=== PATIENT | female | born 1960 | race Caucasian/White ===

== ENCOUNTER → 2016-12-06 | Outpatient (CLI) | payer BC ==
[~2016-12-06] MED LIST: AMT10 PO; ATOR-22 PO; CALC1CHW PO; DIPH1TAB87 PO; GUAI400T44 PO; LEVO88TA3 PO; OLME1TAB11 PO; RANI300T2 PO
--- NOTE | 2016-12-06 14:06 | MAMMOGRAPHY REPORT ---
BILATERAL DIGITAL SCREENING MAMMOGRAM TOMOSYNTHESIS WITH CAD: 12/06/2016 CLINICAL HISTORY: Routine screening. Patient has no complaints. TECHNIQUE: Breast tomosynthesis in addition to standard 2D mammography was performed. Current study was also evaluated with a Computer Aided Detection (CAD) system. COMPARISON: Comparison is made to exams dated: 10/20/2015 mammogram, 07/19/2014 mammogram, 07/16/2013 miko mogram, 07/11/2012 mammogram, 07/10/2011 mammogram, and 06/15/2010 mammogram - [facility]. BREAST COMPOSITION: The tissue of both breasts is heterogeneously dense, which may obscure small ma sses. FINDINGS: No suspicious masses, calcifications, or areas of architectural distortion are noted in e ither breast. There has been no significant interval change compared to prior exams. IMPRESSION: ACR BI-RADS CATEGORY 1: NEGATIVE There is no mammographic evidence of malignancy. A 1 year screening mammogram is recommended. The p atient will receive written notification of the results. Approximately 10% of breast cancers are not detected with mammography. A negative mammographic repor t should not delay biopsy if a clinically suggestive mass is present. Stephenie Galdamez M.D. ah/:12/06/2016 09:01:23 Lightning Rod Erector: Elmer MARCELINO(R)(M), [facility] letter sent: Normal 1/2 BI-RADS Code: ACR BI-RADS Category 1: Negative
== END | disposition home or self-care (01) ==
LOC: C.MAMM 08:31
PROVIDERS: ATTEND Obstetrics & Gynecology
DX: Z12.31 Encounter for screening mammogram for malignant neoplasm of breast (principal)

== ENCOUNTER 2017-06-10 10:45 | Emergency (ER) | payer BC ==
[~2017-06-10] VITALS: Ht 160 cm; Wt 69.1 kg
[2017-06-10 10:48] VITALS: TEMP 36.7; Ht 160 cm; Wt 69.1 kg
[2017-06-10 11:15] LABS: BASO % 0.1 %; BASO ABS # 0.01 K/uL (0-0.2); COMPLETE YES; EOS % 1.2 %; HEMATOCRIT 44.9 % (37-47); IG% 0.3 %; LYMPH % 17.9 %; LYMPH ABS # 2.16 K/uL (1.2-3.4); MEAN CORPUSCULAR HEMOGLOBIN 30.1 pg (25-34); MEAN CORPUSCULAR HGB CONC 33.4 g/dl (32-36); MEAN PLATELET VOLUME 9.9 fL (7.4-10.4); MONO % 10.4 %; NEUT % 70.1 %; PLATELET COUNT 243 K/uL (130-400); RED BLOOD COUNT 4.99 M/uL (4.2-5.4); WHITE BLOOD COUNT 12.04 K/uL (4.8-10.8)
--- NOTE | 2017-06-10 11:21 | DIAGNOSTIC IMAGING REPORT ---
CHEST ONE VIEW PORTABLE HISTORY: 57 years-old Female cp acute atypical chest pain with nausea and dizziness COMPARISON: None available TECHNIQUE: Portable upright AP view of the chest FINDINGS: Cardiomediastinal and hilar silhouettes are within normal limits. There is no pneumothorax, pleural effusion, focal airspace consolidation or overt pulmonary edema. The bones of the chest appear grossly intact. Mild biapical pleural-parenchymal scarring. IMPRESSION: No acute cardiopulmonary process. The above report was generated using voice recognition software. It may contain grammatical, syntax or spelling errors. Electronically signed by: Killian Chase M.D. 06/10/2017 11:20 AM Dictated Date/Time: 06/10/2017 11:19 AM
[2017-06-10 11:32] LABS: ALT/SGPT 38 U/L (12-78); BLOOD UREA NITROGEN 15 mg/dl (7-18); CALCIUM 9.2 mg/dl (8.5-10.1); CARBON DIOXIDE 29 mmol/L (21-32); CHLORIDE 100 mmol/L (98-107); CREATININE 1.03 mg/dl (0.60-1.20); GLUCOSE 98 mg/dl (70-99); POTASSIUM 3.3 mmol/L (3.5-5.1); SODIUM 137 mmol/L (136-145)
[2017-06-10 11:37] LABS: ALKALINE PHOSPHATASE 118 U/L (45-117); AST/SGOT 21 U/L (15-37)
--- NOTE | 2017-06-10 11:51 | DIAGNOSTIC IMAGING REPORT ---
HEAD WITHOUT CONTRAST (CT) CT DOSE: 1033.73 mGy.cm HISTORY: Trauma fall TECHNIQUE: Multiaxial CT images of the head were performed without the use of intravenous contrast. A dose lowering technique was utilized adhering to the principles of ALARA. Comparison: None. Findings: The paranasal sinuses and mastoid air cells are clear. The calvarium and skull base are intact. The ventricles and sulci are within normal limits. There is no mass, hematoma, midline shift, or acute infarct. Impression: No acute intracranial abnormality. The above report was generated using voice recognition software. It may contain grammatical, syntax or spelling errors. Electronically signed by: Adal Mcdonough M.D. 06/10/2017 11:50 AM Dictated Date/Time: 06/10/2017 11:49 AM
--- NOTE | 2017-06-10 11:54 | DIAGNOSTIC IMAGING REPORT ---
CERVICAL SPINE W/O CT DOSE: HISTORY: Trauma fall TECHNIQUE: Multiaxial CT images of the cervical spine were performed and reformatted in the sagittal and coronal plane without the use of contrast. A dose lowering technique was utilized adhering to the principles of ALARA. COMPARISON: None. FINDINGS: No fractures. No subluxation. Prevertebral soft tissues and the C1-C2 interval are intact. No pneumothorax. Moderate degenerative disc change. Several small reactive cervical nodes are IMPRESSION: No fractures within the cervical spine. Moderate degenerative change. The above report was generated using voice recognition software. It may contain grammatical, syntax or spelling errors. Electronically signed by: Adal Mcdonough M.D. 06/10/2017 11:53 AM Dictated Date/Time: 06/10/2017 11:50 AM
[2017-06-10] MEDS ORDERED: DIPH1TAB87 PO (12:05)
[2017-06-10] MEDS ORDERED: ATOR-22 PO (12:05)
[2017-06-10] MEDS ORDERED: GUAI400T44 PO (12:05)
[2017-06-10] MEDS ORDERED: LEVO88TA3 PO (12:05)
[2017-06-10] MEDS ORDERED: RANI300T2 PO (12:05)
[2017-06-10] MEDS ORDERED: OLME1TAB11 PO (12:05)
[2017-06-10] MEDS ORDERED: CALC1CHW PO (12:05)
[2017-06-10] MEDS ORDERED: AMT10 PO (12:05)
[2017-06-10] MEDS ORDERED: OPTIRAY 320 IV PRN (12:15)
--- NOTE | 2017-06-10 12:32 | DIAGNOSTIC IMAGING REPORT ---
(CHEST FOR PE) ANGIO WITH CT DOSE: 192.25 mGy.cm HISTORY: Chest pain dyspnea TECHNIQUE: Multiaxial CT images of the chest were performed following the intravenous administration of contrast to evaluate the pulmonary arteries. Maximal intensity projection images were also obtained. A dose lowering technique was utilized adhering to the principles of ALARA. COMPARISON STUDY: None. FINDINGS: The thoracic aorta is normal in course and caliber. No evidence for aneurysm or dissection. Pulmonary vasculature enhances appropriately. Moderate soft tissue prominence about the left and to lesser extent right sternoclavicular joints presumably on a degenerative basis. Mild/moderate esophageal wall thickening throughout the entire thoracic esophagus. IMPRESSION: 1. Study is negative for pulmonary embolus. 2. Mild emphysematous change with slight bibasilar interstitial prominence. 3. Mild esophageal wall thickening. The above report was generated using voice recognition software. It may contain grammatical, syntax or spelling errors. Electronically signed by: Adal Mcdonough M.D. 06/10/2017 12:31 PM Dictated Date/Time: 06/10/2017 12:24 PM
[2017-06-10 13:54] VITALS: BP 110/83; PULSE 81; O2SAT 94
--- NOTE | 2017-06-10 17:51 | EMERGENCY ROOM VISIT NOTE ---
History Report prepared by Todd: Richard Hansen Under the Supervision of: Dr. Gasper Gratn D.O. First contact with patient: 10:53 Chief Complaint: NAUSEA Stated Complaint: NAUSEA, DIZZY, HIT HEAD AFTER FAINTING Nursing Triage Summary: Pt states she fainted on Saturday and hit her right front of head. c/o "rash since "Saturday pretty much all over except my face. It's gotten better though" . Saturday night had sternal pain. Saturday woke up with nausea and intestinal cramping. Pt c/o feeling more nauseous and dizzy today. Pt states when she passed out she "expelled a large amount of air, like gas, three times" History of Present Illness The patient is a 57 year old female who presents to the Emergency Room with complaints of nausea that began three days ago. The day before her symptoms began, she started taking Zantac 300 mg Bid. The next day, she developed nausea with mid sternal pain that felt like an esophageal spasm. She notes that reclining in a chair improved her symptoms. The next morning when had increased nausea with abdominal cramping. She then had an episode of syncope while getting up to go to the bathroom resulting in a mild head injury. While she was unconscious, her states she belched a moderate amount. When she awoke, she said that her nausea and abdominal cramping was resolved. Yesterday, she states that she felt mildly better. However, this morning she started to feel dizzy and nauseated again with the room mildly spinning. Pt denies headache, change in vision, fevers, chest pain, shortness of breath, vomiting, abdominal pain, diarrhea, pain with urination, and melena. She does not take any blood thinners. No weakness or numbness in the legs. Source of History: patient Onset: three days ago Position: other (GI) Symptom Intensity: moderate Quality: other (nausea) Timing: intermittent Associated Symptoms: No fevers, No chest pain, No SOB, No vomiting, No abdominal pain, No melena, No diarrhea, No urinary symptoms, No weakness, No numbness Note: She is experiencing dizziness with mild room spinning. Review of Systems See HPI for pertinent positives & negatives. A total of 10 systems reviewed and were otherwise negative. Past Medical & Surgical Medical Problems: (1) HLD (hyperlipidemia) (2) Hypothyroidism Family History Omitted secondary to the patient's age. Social History Smoking Status: Never Smoker Smokeless Tobacco Use: No Drug Use: none Marital Status: Housing Status: lives with significant other Current/Historical Medications Scheduled Amitriptyline HCl (Amitriptyline HCl), 10 MG PO DAILY Atorvastatin (Lipitor), 20 MG PO DAILY Calcium Carbonate (Antacid) (Antacid Calcium Regular S), 1 TAB PO DAILY Diphenhydramine Hcl (Benadryl Allergy), 25 MG PO DAILY Guaifenesin (Guaifenesin), 400 MG PO DAILY Levothyroxine Sodium (Levothyroxine Sodium), 88 MCG PO DAILY Olmesartan Medoxomil (Benicar), 0.5 TAB PO DAILY Ranitidine (Zantac), 300 MG PO BID Allergies Coded Allergies: Thimerosal (Unverified Allergy, Intermediate, EYES SWELLED SHUT, 06/10/17) Physical Exam Vital Signs Date Time Temp Pulse Resp B/P (MAP) Pulse Ox O2 Delivery O2 Flow Rate FiO2 06/10/17 13:54 81 18 110/83 94 06/10/17 13:28 77 06/10/17 12:19 89 18 129/87 94 Room Air 06/10/17 11:07 90 06/10/17 10:48 36.7 93 18 133/87 92 Room Air Physical Exam GENERAL: Sitting up in bed, alert, well appearing, well nourished, no distress, non-toxic HEAD: Bruising above the right orbit. EYE EXAM: normal conjunctiva. OROPHARYNX: no exudate, no erythema, lips, buccal mucosa, and tongue normal and mucous membranes are moist NECK: supple, no nuchal rigidity, no adenopathy, non-tender LUNGS: Clear to auscultation. Normal chest wall mechanics HEART: no murmurs, S1 normal and S2 normal ABDOMEN: abdomen soft, non-tender, normo-active bowel sounds, no masses, no rebound or guarding. BACK: Back is symmetrical on inspection and there is no deformity, no midline tenderness, no CVA tenderness. SKIN: no rashes and no bruising UPPER EXTREMITIES: upper extremities are grossly normal. LOWER EXTREMITIES: No pitting edema. NEURO EXAM: Normal sensorium, cranial nerves II-XII intact, normal speech, no weakness of arms, no weakness of legs. No drift. Finger to nose intact. Gross sensation intact. Medical Decision & Procedures ER Provider Diagnostic Interpretation: Radiology results as stated below per my review and the radiologist's interpretation: HEAD WITHOUT CONTRAST (CT) CT DOSE: 1033.73 mGy.cm HISTORY: Trauma fall TECHNIQUE: Multiaxial CT images of the head were performed without the use of intravenous contrast. A dose lowering technique was utilized adhering to the principles of ALARA. Comparison: None. Findings: The paranasal sinuses and mastoid air cells are clear. The calvarium and skull base are intact. The ventricles and sulci are within normal limits. There is no mass, hematoma, midline shift, or acute infarct. Impression: No acute intracranial abnormality. The above report was generated using voice recognition software. It may contain grammatical, syntax or spelling errors. Electronically signed by: Adal Mcdonough M.D. 06/10/2017 11:50 AM Dictated Date/Time: 06/10/2017 11:49 AM CHEST ONE VIEW PORTABLE HISTORY: 57 years-old Female cp acute atypical chest pain with nausea and dizziness COMPARISON: None available TECHNIQUE: Portable upright AP view of the chest FINDINGS: Cardiomediastinal and hilar silhouettes are within normal limits. There is no pneumothorax, pleural effusion, focal airspace consolidation or overt pulmonary edema. The bones of the chest appear grossly intact. Mild biapical pleural-parenchymal scarring. IMPRESSION: No acute cardiopulmonary process. The above report was generated using voice recognition software. It may contain grammatical, syntax or spelling errors. Electronically signed by: Killian Chase M.D. 06/10/2017 11:20 AM Dictated Date/Time: 06/10/2017 11:19 AM CERVICAL SPINE W/O CT DOSE: HISTORY: Trauma fall TECHNIQUE: Multiaxial CT images of the cervical spine were performed and reformatted in the sagittal and coronal plane without the use of contrast. A dose lowering technique was utilized adhering to the principles of ALARA. COMPARISON: None. FINDINGS: No fractures. No subluxation. Prevertebral soft tissues and the C1-C2 interval are intact. No pneumothorax. Moderate degenerative disc change. Several small reactive cervical nodes are IMPRESSION: No fractures within the cervical spine. Moderate degenerative change. The above report was generated using voice recognition software. It may contain grammatical, syntax or spelling errors. Electronically signed by: Adal Mcdonough M.D. 06/10/2017 11:53 AM Dictated Date/Time: 06/10/2017 11:50 AM (CHEST FOR PE) ANGIO WITH CT DOSE: 192.25 mGy.cm HISTORY: Chest pain dyspnea TECHNIQUE: Multiaxial CT images of the chest were performed following the intravenous administration of contrast to evaluate the pulmonary arteries. Maximal intensity projection images were also obtained. A dose lowering technique was utilized adhering to the principles of ALARA. COMPARISON STUDY: None. FINDINGS: The thoracic aorta is normal in course and caliber. No evidence for aneurysm or dissection. Pulmonary vasculature enhances appropriately. Moderate soft tissue prominence about the left and to lesser extent right sternoclavicular joints presumably on a degenerative basis. Mild/moderate esophageal wall thickening throughout the entire thoracic esophagus. IMPRESSION: 1. Study is negative for pulmonary embolus. 2. Mild emphysematous change with slight bibasilar interstitial prominence. 3. Mild esophageal wall thickening. The above report was generated using voice recognition software. It may contain grammatical, syntax or spelling errors. Electronically signed by: Adal Mcdonough M.D. 06/10/2017 12:31 PM Dictated Date/Time: 06/10/2017 12:24 PM Laboratory Results 06/10/17 10:55 Red Blood Count 4.99, Mean Corpuscular Volume 90.0, Mean Corpuscular Hemoglobin 30.1, Mean Corpuscular Hemoglobin Concent 33.4, Mean Platelet Volume 9.9, Neutrophils (%) (Auto) 70.1, Lymphocytes (%) (Auto) 17.9, Monocytes (%) (Auto) 10.4, Eosinophils (%) (Auto) 1.2, Basophils (%) (Auto) 0.1, Neutrophils # (Auto ) 8.43, Lymphocytes # (Auto) 2.16, Monocytes # (Auto) 1.25, Eosinophils # (Auto ) 0.15, Basophils # (Auto) 0.01 06/10/17 10:55 Test 06/10/17 10:55 White Blood Count 12.04 K/uL (4.8-10.8) Red Blood Count 4.99 M/uL (4.2-5.4) Hemoglobin 15.0 g/dL (12.0-16.0) Hematocrit 44.9 % (37-47) Mean Corpuscular Volume 90.0 fL (80-100) Mean Corpuscular Hemoglobin 30.1 pg (25-34) Mean Corpuscular Hemoglobin Concent 33.4 g/dl (32-36) Platelet Count 243 K/uL (130-400) Mean Platelet Volume 9.9 fL (7.4-10.4) Neutrophils (%) (Auto) 70.1 % Lymphocytes (%) (Auto) 17.9 % Monocytes (%) (Auto) 10.4 % Eosinophils (%) (Auto) 1.2 % Basophils (%) (Auto) 0.1 % Neutrophils # (Auto) 8.43 K/uL (1.4-6.5) Lymphocytes # (Auto) 2.16 K/uL (1.2-3.4) Monocytes # (Auto) 1.25 K/uL (0.11-0.59) Eosinophils # (Auto) 0.15 K/uL (0-0.5) Basophils # (Auto) 0.01 K/uL (0-0.2) RDW Standard Deviation 42.2 fL (36.4-46.3) RDW Coefficient of Variation 12.9 % (11.5-14.5) Immature Granulocyte % (Auto) 0.3 % Immature Granulocyte # (Auto) 0.04 K/uL (0.00-0.02) D-Dimer 3000 ug/L FEU (0-500) Anion Gap 8.0 mmol/L (3-11) Est Creatinine Clear Calc Drug Dose 54.8 ml/min Estimated GFR () 68.9 Estimated GFR (Non- 59.5 BUN/Creatinine Ratio 15.0 (10-20) Calcium Level 9.2 mg/dl (8.5-10.1) Total Bilirubin 0.6 mg/dl (0.2-1) Direct Bilirubin 0.1 mg/dl (0-0.2) Aspartate Amino Transf (AST/SGOT) 21 U/L (15-37) Alanine Aminotransferase (ALT/SGPT) 38 U/L (12-78) Alkaline Phosphatase 118 U/L (45-117) Troponin I < 0.015 ng/ml (0-0.045) Total Protein 8.2 gm/dl (6.4-8.2) Albumin 3.8 gm/dl (3.4-5.0) Lipase 289 U/L (73-393) Laboratory results per my review. ECG Indication: nausea Rate (beats per minute): 85 Rhythm: sinus rhythm Findings: T-wave inversion (III), left axis deviation Comparison ECG Date: 15 April 2006 ED Course ED COURSE: Vital signs were reviewed and showed normal vitals. The patients medical record was reviewed The above diagnostic studies were performed and reviewed. ED treatments and interventions as stated above. 1053: The patient was evaluated in room A10. A complete history and physical examination was performed. 1218: I updated the patient at this time. She is about to go to CT. 1345: Upon reevaluation, the patient is resting. I discussed my findings with the patient and she understands and agrees with the treatment plan. Based on the patients age, coexisting illnesses, exam and lab findings the decision to treat as an outpatient was made. The patient remained stable while under my care. The patient appeared well at the time of discharge. Medical Decision Differential diagnosis includes etiologies such as benign positional vertigo, dehydration, hypovolemia, anemia, tumor, infection, hypoglycemia, electrolyte abnormalities, cardiac sources, intracerebral event, toxicologic, neurologic, as well as others were entertained. Patient is a 57-year-old female who presents to ER for chest pain associated with nausea and a syncopal episode this past Saturday. She has that she was feeling extremely nauseous and ill-appearing and passed out. Following that nausea has improved significantly. She does feel slightly dizzy which worsened yesterday and today. She does have a bruise on right forehead. CBC shows a mild leukocytosis of 12,000. BMP all LFTs, bilirubin and lipase is unremarkable. Troponin was negative with pain that was present this past Saturday but resolved since then. D-dimer was elevated. CT PE was performed and was unremarkable. EKG was nondiagnostic. Based on her symptoms I favor the syncopal episode was likely vasovagal in nature. Now I believe she has a concussion which causes dizziness. Dizziness is only present with movement but is not present with rest or sitting. Completely neurologically intact. Was given fluids and feeling significantly better. Discussed with Pt concerning signs and symptoms to watch out for. Pt was instructed to follow up with their PCP and discussed with the patient their option to return to the ED at anytime for persistent or worsening symptoms. The appropriate anticipatory guidance and out-patient management, including indications for return to the emergency department, were explained at length to the patient and understood. Medication Reconcilliation Current Medication List: was personally reviewed by me Blood Pressure Screening Patient's blood pressure: Normal blood pressure Blood pressure disposition: Did not require urgent referral Impression Primary Impression: Concussion Additional Impressions: Syncope Contusion of head Scribe Attestation The scribe's documentation has been prepared under my direction and personally reviewed by me in its entirety. I confirm that the note above accurately reflects all work, treatment, procedures, and medical decision making performed by me. Departure Information Dispostion Home / Self-Care Referrals Braden Abad Jr,D.O. (PCP) Forms HOME CARE DOCUMENTATION FORM, IMPORTANT VISIT INFORMATION Patient Instructions [facility], Syncope Causes Additional Instructions Please follow up with your primary care doctor with in the next 24 hours. Any worsening of your symptoms, please return to the ED immediately. This includes any fevers greater than 100.4, worsening pain, chest pain, shortness breath, persistent nausea, vomiting, unable to eat or drink, or any other concerning signs or symptoms from your standpoint. Please try to remain as hydrated as possible. Please rest the next 24 hours. Please follow up with your primary care doctor in regards to your syncopal episode with concussion. Problem Qualifiers Primary Impression: Concussion Encounter type: initial encounter Loss of consciousness presence/duration: with LOC of 30 min or less Qualified Codes: S06.0X1A - Concussion with loss of consciousness of 30 minutes or less, initial encounter Additional Impressions: Syncope Syncope type: unspecified Qualified Codes: R55 - Syncope and collapse Contusion of head Encounter type: initial encounter Contusion of head detail: unspecified part of head Qualified Codes: S00.93XA - Contusion of unspecified part of head , initial encounter
== END 2017-06-10 13:55 | disposition home or self-care (01) ==
LOC: C.EDB 10:46 → C.EDC 13:55
DX: S06.0X9A Concussion with loss of consciousness of unspecified duration, initial encounter (principal); S00.93XA Contusion of unspecified part of head, initial encounter; W22.8XXA Striking against or struck by other objects, initial encounter; R55 Syncope and collapse; E78.5 Hyperlipidemia, unspecified; E03.9 Hypothyroidism, unspecified; Z79.899 Other long term (current) drug therapy; Z88.8 Allergy status to other drugs, medicaments and biological substances